=== PATIENT | male | born 1990 | race Caucasian/White ===

== ENCOUNTER 2024-06-26 17:04 | Emergency (ER) | payer BC, SELFPAY ==
--- NOTE | ~2024-06-26 | XR_ITS ---
EXAMINATION: XR chest 1V portable DATE: 06/26/2024 20:10 INDICATION: Chest pain TECHNIQUE: frontal view of the chest was obtained. COMPARISON: None FINDINGS: The lungs are clear with no focal airspace opacities, pulmonary edema, pleural effusion or pneumothor ax. The cardiomediastinal silhouette is normal. IMPRESSION: 1. No acute cardiopulmonary disease. Reviewed, dictated and finalized at location A.
--- NOTE | 2024-06-26 17:05 | ECG_ITS ---
Test Date: 2024-06-26 17:12:04 Measurements Intervals [place] Rate: 102 P: -17 WV: 123 QRS: -24 QRSD: 100 T: -8 QT: 339 QTc: 443 Interpretive Statements SINUS TACHYCARDIA INCOMPLETE RIGHT BUNDLE BRANCH BLOCK BORDERLINE ST-T WAVE ABNORMALITY- ANTEROLAT/INF LEADS BASELINE ARTIFACT- II, V4-V6 BORDERLINE ECG No previous ECG available for comparison Electronically Signed On 06-26-2024 20:08:48 CDT by Chandrakant Benites D.O.
[2024-06-26 17:07] VITALS: BP 151/96; PULSE 113; RESP 14; TEMP 36.4; O2SAT 98
[2024-06-26 19:47] VITALS: BP 149/105; PULSE 93; RESP 15; O2SAT 100
[2024-06-26] MEDS: ASPIRIN 81 MG CHEWABLE TABLET 324 MG PO (20:00)
--- NOTE | 2024-06-26 20:05 | ECG_ITS ---
Test Date: 2024-06-26 20:11:16 Measurements Intervals [place] Rate: 91 P: -3 SD: 146 QRS: -21 QRSD: 105 T: 2 QT: 361 QTc: 445 Interpretive Statements SINUS RHYTHM INCOMPLETE RIGHT BUNDLE BRANCH BLOCK NONSPECIFIC T-WAVE ABNORMALITY- ANTEROLAT/INF LEADS BASELINE ARTIFACT- II, V4-V6 BORDERLINE ECG Compared to ECG 06/26/2024 17:12:04 HEART RATE HAS DECREASED Electronically Signed On 06-26-2024 20:14:14 CDT by Chandrakant Benites D.O.
[2024-06-26 20:13] LABS: Basophils Absolute Auto 0.1 K/mm3 (0.0-0.1); Basophils Percent Auto 1.2 % (0.2-1.2); Eosinophils Absolute Auto 0.5 K/mm3 (0-0.3); Hematocrit 46.5 % (42.0-52.0); Immature Granulocyte Absolute 0.03 K/mm3 (0.00-0.031); Immature Granulocyte Percent A 0.3 % (0-0.5); Lymphocytes Absolute Auto 3.83 K/mm3 (0.9-3.2); Lymphocytes Percent Auto 32.7 % (18.3-44.2); Mean Corpuscular HGB Conc 34.4 g/dl (32-36); Mean Corpuscular Hemoglobin 30.6 pg (26-34); Mean Corpuscular Volume 88.9 fl (80-100); Mean Platelet Volume 10.2 fl (7.4-10.4); Monocytes Absolute Auto 0.6 K/mm3 (0.1-0.6); Neutrophils Absolute Auto 6.7 K/mm3 (1.3-6.7); Neutrophils Percent Auto 56.8 % (45.5-73.1); Platelet Count Result 275 k/mm3 (150-375); Red Blood Count 5.23 M/mm3 (4.6-6.20); Red Cell Distribution Width 12.6 % (11.5-14.5); White Blood Count 11.7 K/mm3 (4.5-10.0)
[2024-06-26 20:25] LABS: Partial Thromboplastin Time 27.6 Seconds (22.3-36.8)
--- NOTE | 2024-06-26 20:39 | ED.GENADULT ---
HPI - General Adult General Chief complaint: Chest Pain Stated complaint: chest tightness/palpitations Time Seen by Provider: 06/26/24 19:54 History of Present Illness HPI narrative: This is a 34-year-old male presenting ED with chief complaint of chest pain. Patient says that yesterday while he was at work he developed a sharp tightness on the right side of his chest. It is nonradiating 4 out 10 intensity and comes and goes. He has never had pain like this before. It improves drinking water intake in the past. No no exacerbating factor. Not associated with fevers chills productive cough shortness of breath exertion diaphoresis or vomiting. Patient does have a history of anxiety and panic disorders early says this feels different. Patient denies risk factors for DVT PE, lower extremity edema. patient also has pain in his right shoulder over the lateral deltoid that is worse with movement. He also has pain in his right wrist that is worse with movement. He has not taken anything for pain control. Related Data Allergies Allergy/AdvReac Type Severity Reaction Status Date / Time No Known Allergies Allergy Verified 06/26/24 17:05 [facility] Past Medical History Medical History Anxiety Exam Narrative: APPEARANCE: No apparent distress. Head: atraumatic. EYES: EOMI, NOSE: Atraumatic NECK: Trachea midline RESPIRATORY: No increased rate of breathing CTAB CARDIOVASCULAR: RRR, no peripheral edema ABDOMINAL: Non-distended soft nontender MUSCULOSKELETAl: No obvious deformities NEURO: Alert. Moving 4/4 extremities SKIN:: Warm, dry. Normal color PSYCHIATRIC: Normal affect Course Vital Signs Vital signs: Vital Signs Temperature 97.6 F 06/26/24 17:07 Pulse Rate 113 H 06/26/24 17:07 Respiratory Rate 14 06/26/24 17:07 Blood Pressure 151/96 H 06/26/24 17:07 Pulse Oximetry 98 06/26/24 17:07 Temperature 97.6 F 06/26/24 17:07 Pulse Rate 93 06/26/24 19:47 Respiratory Rate 15 06/26/24 19:47 Blood Pressure 149/105 H 06/26/24 19:47 Pulse Oximetry 100 06/26/24 19:47 Oxygen Delivery Room Air 06/26/24 19:46 Medical Decision Making MDM Narrative Medical decision making narrative: -Course: 34-year-old male presenting with atypical right-sided chest pain. Workup including troponins chest x-ray EKG D-dimer BNP was negative. patient given pain medication with some improvement. Patient be discharged follow-up with primary care physician. Given return precautions. -DDX includes but is not limited to: MSK pain, pleurisy, PE, ACS, pneumothorax, pneumonia -Co-morbidities complicating care: anxiety with panic attacks -Independent interpretation of studies: labs reviewed chest x-ray negative Independent EKG interpretation: Rhythm [sinus], Rate [91], [place] -[normal], [place] -[normal], QRS [narrow], QTC [normal], T waves -[negative for concerning inversions], ST Segments - [Negative for concerning elevations] Final interpretations: [Normal Sinus Rhythm] -Interventions:motrin tylenol robaxin -Shared decision making / Disposition:discharged -RX Motrin Tylenol Robaxin Vital Signs Vital Signs: Vital Signs Temperature 97.6 F 06/26/24 17:07 Pulse Rate 113 H 06/26/24 17:07 Respiratory Rate 14 06/26/24 17:07 Blood Pressure 151/96 H 06/26/24 17:07 Pulse Oximetry 98 06/26/24 17:07 Temperature 97.6 F 06/26/24 17:07 Pulse Rate 93 06/26/24 19:47 Respiratory Rate 15 06/26/24 19:47 Blood Pressure 149/105 H 06/26/24 19:47 Pulse Oximetry 100 06/26/24 19:47 Oxygen Delivery Room Air 06/26/24 19:46 Lab Data 06/26/24 20:03 06/26/24 20:03 Labs: Lab Results 06/26/24 Range/Units 20:03 WBC 11.7 H (4.5-10.0) K/mm3 RBC 5.23 (4.6-6.20) M/mm3 Hgb 16.0 (14.0-18.0) g/dL Hct 46.5 (42.0-52.0) % MCV 88.9 (80-100) fl MCH 30.6 (26-34) pg MCHC 34.4 (32-36) g/dl RDW
[2024-06-26 20:43] LABS: Alanine Aminotransferase 101 U/L (6-50); Albumin Level 4.3 g/dL (3.5-5.1); Alkaline Phosphatase 63 U/L (38-126); Anion Gap 10 mmol/L (4-12); Aspartate Amino Transferase 56 U/L (17-59); Bilirubin,Total 0.5 mg/dL (0.2-1.3); Blood Urea Nitrogen 8 mg/dL (9-20); Calcium 8.9 mg/dL (8.4-10.2); Carbon Dioxide 25 mmol/L (22-30); Chloride 103 mmol/L (98-107); Estimated Glomerular Filt Rate > 60; Glucose 125 mg/dL (65-110); Lipase 141 U/L (23-300); Potassium 3.7 mmol/L (3.4-5.0); Sodium 138 mmol/L (137-145); Troponin I < 0.012 ng/mL (0.000-0.034)
[2024-06-26 21:01] VITALS: BP 147/105; PULSE 86; RESP 20; O2SAT 98
[2024-06-26 21:10] LABS: NT Pro B Type Natriuretic Pept 54 pg/mL (19.9-100)
[2024-06-26 21:13] LABS: D Dimer < 0.27 ug/mL (<0.48)
[2024-06-26] MEDS: IBUPROFEN 400 MG TABLET 800 MG PO (21:22)
[2024-06-26] MEDS: methocarbamoL 750 MG TABLET 1500 MG PO (21:22)
[2024-06-26] MEDS: ACETAMINOPHEN 500 MG TABLET 1000 MG PO (21:22)
[2024-06-26 22:01] VITALS: BP 137/101; PULSE 90; RESP 15; O2SAT 98
== END 2024-06-26 22:22 | disposition home or self-care (01) ==
PROVIDERS: Emergency Medicine; Emergency Provider Emergency Medicine
DX: R07.89 Other chest pain (principal)
CPT/HCPCS: 36415; 71045; 80053; 83690; 83880; 84484; 85025; 85380; 85610; 85730; 93005; 99284; A9270